=== PATIENT | male | born 1975 | race Caucasian/White ===

== ENCOUNTER → 2017-09-17 | Outpatient (CLI) | payer OTHER ==
[~2017-09-17] MED LIST: MONT1TAB3 PO; [UNRECOGNIZED DRUG - OTHER] PO
[2017-09-17 13:58] LABS: BASO % 0.3 %; BASO ABS # 0.03 K/uL (0-0.2); EOS % 6.1 %; EOS ABS # 0.69 K/uL (0-0.5); HEMATOCRIT 43.9 % (42-52); HEMOGLOBIN 15.6 g/dL (14.0-18.0); IG# 0.03 K/uL (0.00-0.02); LYMPH % 25.3 %; LYMPH ABS # 2.86 K/uL (1.2-3.4); MEAN CELL VOLUME 85.2 fL (80-100); MEAN CORPUSCULAR HEMOGLOBIN 30.3 pg (25-34); MEAN CORPUSCULAR HGB CONC 35.5 g/dl (32-36); MEAN PLATELET VOLUME 10.5 fL (7.4-10.4); MONO ABS # 1.25 K/uL (0.11-0.59); NEUT ABS # 6.46 K/uL (1.4-6.5); PLATELET COUNT 313 K/uL (130-400); RED CELL DISTRIBUTION WIDTH CV 12.5 % (11.5-14.5); RED CELL DISTRIBUTION WIDTH SD 38.4 fL (36.4-46.3); WHITE BLOOD COUNT 11.32 K/uL (4.8-10.8)
[2017-09-17 14:10] LABS: ALBUMIN 4.3 gm/dl (3.4-5.0); ALT/SGPT 81 U/L (12-78); BLOOD UREA NITROGEN 16 mg/dl (7-18); CALCIUM 9.5 mg/dl (8.5-10.1); CARBON DIOXIDE 26 mmol/L (21-32); CREATININE 1.01 mg/dl (0.60-1.40); GLUCOSE 105 mg/dl (70-99); LIPASE 105 U/L (73-393); POTASSIUM 4.4 mmol/L (3.5-5.1); SODIUM 137 mmol/L (136-145)
[2017-09-17 14:14] LABS: ALKALINE PHOSPHATASE 83 U/L (45-117); AST/SGOT 36 U/L (15-37); TOTAL PROTEIN 7.5 gm/dl (6.4-8.2)
== END | disposition home or self-care (01) ==
LOC: C.LABSPEC 13:21
PROVIDERS: ATTEND Family Medicine
DX: R10.9 Unspecified abdominal pain (principal)

== ENCOUNTER → 2017-09-17 | Outpatient (CLI) | payer OTHER ==
--- NOTE | 2017-09-17 13:58 | DIAGNOSTIC IMAGING REPORT ---
ABDOMEN LIMITED (US) CLINICAL HISTORY: 42 years-old Male presenting with R10.9 abdominal pain. TECHNIQUE: Real-time grayscale and limited color Doppler ultrasound imaging of the abdomen limited to the right upper quadrant was performed. COMPARISON: None. FINDINGS: Pancreas: Visualized portions of the pancreatic head and body normal. Liver: Markedly hyperechogenic parenchyma with obscuration of the right hemidiaphragm, likely indicating marked hepatic steatosis. The liver measures 19.1 cm in maximal sagittal dimension. No sonographic evidence of hepatic mass. Main portal vein patent with normal directional flow. Biliary: No intrahepatic biliary ductal dilatation. Common bile duct measures up to 4 mm in diameter. Gallbladder: No evidence of gallstones, gallbladder wall thickening, gallbladder distention, or pericholecystic fluid or inflammatory change. Right kidney: Normal in appearance. No hydronephrosis. Ascites: None. Other: None. IMPRESSION: Hepatic steatosis and mild hepatomegaly. Correlate with liver function tests to exclude steatohepatitis as a cause for abdominal pain. Electronically signed by: Conner Dillard M.D. 09/17/2017 1:57 PM Dictated Date/Time: 09/17/2017 1:55 PM
== END | disposition home or self-care (01) ==
LOC: C.ULTRBC 12:59
PROVIDERS: ATTEND Family Medicine
DX: R10.9 Unspecified abdominal pain (principal); K76.0 Fatty (change of) liver, not elsewhere classified